=== PATIENT | female | born 1950 | race Caucasian/White ===

== ENCOUNTER → 2017-07-09 | Day surgery (SDC) | payer MEDICARE, OTHER ==
--- NOTE | 2017-07-08 16:43 | Diagnostic Imaging Report ---
PROCEDURE: Frontal and lateral views of the chest. COMPARISON: None. INDICATIONS: PRE OP FINDINGS: Lines/tubes: None. Lungs: The lungs are well inflated and clear. There is no evidence of pneumonia or pulmonary edema. Pleura: There is no pleural effusion or pneumothorax. Heart and mediastinum: The heart and the mediastinum are normal. Bones: No acute bony abnormality. Upper abdomen: Surgical clips overlie the abdomen on lateral view, likely cholecystectomy clips. No free air under the diaphragm. IMPRESSION: No acute cardiopulmonary disease. Dictated by: Vipin Navarro M.D. on 07/08/2017 at 16:51 Electronically approved by: Vipin Navarro M.D. on 07/08/2017 at 16:51
[2017-07-08 16:46] LABS: BASOPHILS % 0.2 % (0.0-1.0); EOSINOPHILS # (AUTO) 0.1 (0.0-0.4); HEMATOCRIT 39.4 % (34.2-44.1); LYMPHOCYTES # (AUTO) 1.9 (1.0-3.2); MEAN CORPUSCULAR HEMOGLOBIN 30.3 pg (28-32); MEAN CORPUSCULAR VOLUME 91.8 fL (81-99); MONOCYTES # (AUTO) 0.8 (0.2-0.8); MONOCYTES % 9.3 % (4.4-11.3); NEUTROPHILS # (AUTO) 5.4 (2.1-6.9); NEUTROPHILS % 66.1 % (38.7-80.0); PLATELET COUNT 282 x10e3/uL (140-360); RED BLOOD COUNT 4.29 x10e6/uL (3.6-5.1); RED CELL DISTRIBUTION WIDTH 12.9 % (11.7-14.4)
[2017-07-08 17:02] LABS: ANION GAP 13.7 mmol/L (8-16); CALCIUM 9.9 mg/dL (8.4-10.2); CREATININE, SERUM 1.2 mg/dL (0.57-1.11); POTASSIUM 4.7 mmol/L (3.5-5.1)
[~2017-07-09] MED LIST: ACETAMINOPHEN 1000 MG/100 ML 100 ML IV ONE; BENTYL10 MG/1 ML PO; BUPIVACAINE 0.25%/EPI 30ML SDV INJ ONE; CITALOPRAM HBR20 MG PO; DEXAMETHASONE SOD PHOS INJ 4 MG/ML VIAL ONE; FENTANYL CITRATE/PF 100MCG/2 ML INJ ONE; LEVAQUIN500 MG PO; LIDOCAINE HCL 2% LOCAL INJ 5 ML SDV VIAL INJ ONE; LISINOPRIL20 MG PO; LOVENOX40 MG/0.4 SC; METRONIDAZOLE500 MG PO; MIDAZOLAM HCL 2 MG/2 ML VIAL ONE; NORCO 7.5-3251 EACH PO; ONDANSETRON HCL INJ 2 MG/ML VIAL ONE; PANTOPRAZOLE SO40 MG PO; PHENYLEPHRINE HCL 1% 10 MG/ML VIAL ONE; PROPOFOL IV EMULSION 10 MG/ML 20 ML VIAL ONE; SEVOFLURANE INHAL SOLN 250 ML PEN BTL ONE; SIMVASTATIN20 MG PO
--- NOTE | 2017-07-09 15:52 | Operative Report ---
DATE OF PROCEDURE: July 09, 2017 PREOPERATIVE DIAGNOSIS: Hematoma of the right breast. POSTOPERATIVE DIAGNOSIS: Hematoma of the right breast. OPERATION PERFORMED: Incision and drainage of hematoma of the right breast. ANESTHESIA: General. COMPLICATIONS: None. ESTIMATED BLOOD LOSS: Minimal. DESCRIPTION OF PROCEDURE: With the patient lying in bed in the supine position, under good general anesthesia, the right breast was prepped with Betadine solution and draped in the usual manner. There was a large bulging hematoma that encompassed the upper, inner and medial quadrants of the right breast extending onto the subareolar area. A small incision was then made at about the 2 o'clock position, and immediately hematoma was entered and a lot of liquefied blood and clots were then obtained, probably at least 300 mL worth. All of this was slowly and carefully aspirated, and all the clots were suctioned out. Once this was done, the cavity was then irrigated with dilute Betadine solution, and all of the fluid was aspirated. Hemostasis was ascertained. A 1/4-inch Calderon drain was then left in the cavity and fixed to the skin with 3-0 silk suture. A dressing was applied. The sponge, lap and needle count was correct. Patient tolerated the procedure well and returned to the recovery room in stable condition. Job#: [id number]
== END | disposition home or self-care (01) ==
LOC: OR 11:06
PROVIDERS: ATTEND Surgery
DX: N64.89 Other specified disorders of breast (principal); E66.01 Morbid (severe) obesity due to excess calories; K21.9 Gastro-esophageal reflux disease without esophagitis; F32.9 Major depressive disorder, single episode, unspecified; Z01.810 Encounter for preprocedural cardiovascular examination; Z01.812 Encounter for preprocedural laboratory examination; Z01.818 Encounter for other preprocedural examination
CPT/HCPCS: 10140; 36415; 71020; 80048; 85025; 93005; J1100; J2001; J2250; J2370; J2405

== ENCOUNTER → 2017-07-13 | Outpatient (CLI) | payer MEDICARE, OTHER ==
[~2017-07-13] MED LIST changes: -ACETAMINOPHEN 1000 MG/100 ML 100 ML IV ONE; -BUPIVACAINE 0.25%/EPI 30ML SDV INJ ONE; -DEXAMETHASONE SOD PHOS INJ 4 MG/ML VIAL ONE; -FENTANYL CITRATE/PF 100MCG/2 ML INJ ONE; +IOPAMIDOL 370 MG/ML 200 ML INFUS..BTL INJ ONE; -LIDOCAINE HCL 2% LOCAL INJ 5 ML SDV VIAL INJ ONE; -MIDAZOLAM HCL 2 MG/2 ML VIAL ONE; -ONDANSETRON HCL INJ 2 MG/ML VIAL ONE; -PHENYLEPHRINE HCL 1% 10 MG/ML VIAL ONE; -PROPOFOL IV EMULSION 10 MG/ML 20 ML VIAL ONE; -SEVOFLURANE INHAL SOLN 250 ML PEN BTL ONE; +SODIUM CHLORIDE 0.9% 250ML 250 ML ONE; +SODIUM CHLORIDE 0.9% 50ML 50 ML ONE
[2017-07-13 12:01] LABS: CREATININE, SERUM 0.98 mg/dL (0.57-1.11)
--- NOTE | 2017-07-13 14:42 | Diagnostic Imaging Report ---
PROCEDURE: CT ABDOMEN \T\ PELVIS W/WO CONTRAST TECHNIQUE: The abdomen and pelvis were scanned utilizing a multidetector helical scanner from the diaphragm to the lesser trochanter before and after the IV administration of 150 cc of Isovue 370 and the oral administration of water. Hematuria protocol was utilized Coronal and sagittal multiplanar reformations were obtained. COMPARISON: None. INDICATIONS: HEMATURIA FINDINGS: LOWER THORAX: Linear subsegmental atelectasis versus scarring in the lingula (series 3, image 22). Mild atherosclerotic calcification of the LAD. Small hiatal hernia. HEPATOBILIARY: Normal hepatic size and contour. No focal lesions. No biliary ductal dilation. Cholecystectomy clips. SPLEEN: No splenomegaly. PANCREAS: No focal masses or ductal dilatation. ADRENALS: No adrenal nodules. KIDNEYS/URETERS: No renal or ureteral calculi. No hydronephrosis, hydroureter, or evidence of obstruction. No solid enhancing lesions. Subcentimeter hypodense lesion in the superior pole of the right kidney (series 6, images 74), which is too small to characterize, but likely represents a small cyst. There is good contrast opacification of bilateral renal collecting systems, renal pelves, and ureters. No filling defects, strictures, or extrinsic compressions. No periureteral stranding. PELVIC ORGANS/BLADDER: Bladder shows mild circumferential wall thickening. No focal lesions. Uterus is absent. No adnexal masses. PERITONEUM / RETROPERITONEUM: No free air or fluid. LYMPH NODES: No lymphadenopathy. VESSELS: Unremarkable. GI TRACT: No bowel dilation or evidence of obstruction. Distal descending and sigmoid diverticulosis, without diverticulitis. BONES AND SOFT TISSUES: No acute bony abnormalities. Degenerative disc changes in the lumbosacral spine, worse at L5-S1, and T12-L1. Grade 1 anterolisthesis of L4 and L5 and L1 and T12. No lytic lesions. No lytic lesions. Slight rightward curvature of the lower thoracic/upper lumbar spine. Soft tissues are grossly unremarkable. IMPRESSION: 1. no renal, ureteral, or bladder calculi. No hydronephrosis or obstruction. No filling defects, strictures, or extrinsic compressions in the opacified portions of the genitourinary tract. 2. Mild circumferential bladder wall thickening. This may reflect cystitis. No focal lesions are identified. 3. Small hiatal hernia. Lloyd Kat M.D. Dictated by: Lloyd Kat M.D. on 07/13/2017 at 14:50 Electronically approved by: Lloyd Kat M.D. on 07/13/2017 at 14:50
== END ==
LOC: CT 07-12 16:13
PROVIDERS: ATTEND Family Medicine
DX: R31.9 Hematuria, unspecified (principal)
CPT/HCPCS: 36415; 74178; 82565; 84520; J7050; Q9967

== ENCOUNTER → 2017-09-09 | Day surgery (SDC) | payer MEDICARE, OTHER ==
[2017-09-07 14:21] LABS: BASOPHILS % 0.3 % (0.0-1.0); EOSINOPHILS # (AUTO) 0.1 (0.0-0.4); EOSINOPHILS % 1.4 % (0.0-6.0); HEMATOCRIT 41.6 % (34.2-44.1); HEMOGLOBIN 13.7 g/dL (12.0-16.0); LYMPHOCYTES # (AUTO) 1.9 (1.0-3.2); MEAN CORPUSCULAR HEMOGLOBIN 30.1 pg (28-32); MEAN CORPUSCULAR HGB CONC 32.9 g/dL (31-35); MEAN CORPUSCULAR VOLUME 91.4 fL (81-99); MONOCYTES # (AUTO) 0.5 (0.2-0.8); MONOCYTES % 8.3 % (4.4-11.3); NEUTROPHILS # (AUTO) 3.4 (2.1-6.9); NEUTROPHILS % 57.8 % (38.7-80.0); PLATELET COUNT 265 x10e3/uL (140-360); RED BLOOD COUNT 4.55 x10e6/uL (3.6-5.1); RED CELL DISTRIBUTION WIDTH 13.4 % (11.7-14.4)
[2017-09-07 14:33] LABS: ANION GAP 14.1 mmol/L (8-16); CREATININE, SERUM 1.06 mg/dL (0.57-1.11); POTASSIUM 5.1 mmol/L (3.5-5.1)
[~2017-09-09] MED LIST changes: +DEXAMETHASONE SOD PHOS INJ 4 MG/ML VIAL ONE; +EPHEDRINE SULFATE INJ 50 MG/10 ML SYR ONE; +FENTANYL CITRATE/PF 100MCG/2 ML INJ ONE; -IOPAMIDOL 370 MG/ML 200 ML INFUS..BTL INJ ONE; +LIDOCAINE HCL 1% LOCAL INJ 20 ML VIAL ONE; +LIDOCAINE HCL 2% LOCAL INJ 5 ML SDV VIAL INJ ONE; +MIDAZOLAM HCL 2 MG/2 ML VIAL ONE; +ONDANSETRON HCL INJ 2 MG/ML VIAL ONE; +PROPOFOL IV EMULSION 10 MG/ML 20 ML VIAL ONE; +SEVOFLURANE INHAL SOLN 250 ML PEN BTL ONE; -SODIUM CHLORIDE 0.9% 250ML 250 ML ONE; -SODIUM CHLORIDE 0.9% 50ML 50 ML ONE
--- OUTSIDE RECORDS SUMMARY | 2017-09-09 08:21 | XMS REPORT ---
Author Author [facility] Address Unknown Phone Unavailable Care Team Providers Care Commercial Loan Manager Name Role Phone MAY ECHEVERRIA Unavailable Unavailable MARIA LUZ SANTILLAN Unavailable Unavailable Problems This patient has no known problems. Allergies, Adverse Reactions, Alerts This patient has no known allergies or adverse reactions. Medications This patient has no known medications. Results Test Description Test Time Test Comments Text Results Atomic Results Result Comments CT ABDOMEN/PELVIS WOW [place] [address] Patient Name: VIOLETTA ANN MR #: [id number] : 1950 Age/Sex: 66/F Req #: [id number] Adm Physician: Ordered by: MAY ECHEVERRIA MD Report #: [id number] Location: CT Room/Bed: Procedure: [id number] CT/CT ABDOMEN/PELVIS WOW Exam Date: 07/13/17 Exam Time: 1235 REPORT STATUS: Signed PROCEDURE: CT ABDOMEN T PELVIS W/WO CONTRAST TECHNIQUE: The abdomen and pelvis were scanned utilizing a multidetector helical scanner from the diaphragm to the lesser trochanter before and after the IV administration of 150 cc of Isovue 370 and the oral administration of water. Hematuria protocol was utilized Coronal and sagittal multiplanar reformations were obtained. COMPARISON: None. INDICATIONS: HEMATURIA FINDINGS: LOWER THORAX : Linear subsegmental atelectasis versus scarring in the lingula (series 3, image 22). Mild atherosclerotic calcification of the LAD. Small hiatal hernia. HEPATOBILIARY: Normal hepatic size and contour. No focal lesions. No biliary ductal dilation. Cholecystectomy clips. SPLEEN: No splenomegaly. PANCREAS: No focal masses or ductal dilatation. ADRENALS: No adrenal nodules. KIDNEYS/URETERS: No renal or ureteral calculi. No hydronephrosis, hydroureter, or evidence of obstruction. No solid enhancing lesions. Subcentimeter hypodense lesion in the superior pole of the right kidney (series 6, images 74), which is too small to characterize, but likely represents a small cyst. There is good contrast opacification of bilateral renal collecting systems, renal pelves, and ureters. No filling defects, strictures, or extrinsic compressions. No periureteral stranding. PELVIC ORGANS/BLADDER: Bladder shows mild circumferential wall thickening. No focal lesions. Uterus is absent. No adnexal masses. PERITONEUM / RETROPERITONEUM: No free air or fluid. LYMPH NODES: No lymphadenopathy. VESSELS: Unremarkable. GI TRACT: No bowel dilation or evidence of obstruction. Distal descending and sigmoid diverticulosis, without diverticulitis. BONES AND SOFT TISSUES: No acute bony abnormalities. Degenerative disc changes in the lumbosacral spine, worse at L5-S1, and T12-L1. Grade 1 anterolisthesis of L4 and L5 and L1 and T12. No lytic lesions. No lytic lesions. Slight rightward curvature of the lower thoracic/upper lumbar spine. Soft tissues are grossly unremarkable. IMPRESSION: 1. no renal, ureteral, or bladder calculi. No hydronephrosis or obstruction. No filling defects, strictures, or extrinsic compressions in the opacified portions of the genitourinary tract. 2. Mild circumferential bladder wall thickening. This may reflect cystitis. No focal lesions are identified. 3. Small hiatal hernia. Sarai Kat M.D. Dictated by: Sarai Kat M.D. on 07/13/2017 at 14:50 Electronically approved by: Sarai Kat M.D. on 07/13/2017 at 14:50 Dictated By: SARAI KAT MD [id number] Transcribed By: TIRSO on 07/13/17 1450 COPY TO: MAY ECHEVERRIA MD CHEST 2 VIEWS [place] [address] Patient Name: VIOLETTA ANN MR #: [id number] : 1950 Age/Sex: 66/F Req #: [id number] Adm Physician: Ordered by: MARIA LUZ SANTILLAN MD Report #: [id number] Location: OR Room/Bed: Procedure: [id number] DX/CHEST 2 VIEWS Exam Date: 07/08/17 Exam Time : 1558 REPORT STATUS: Signed PROCEDURE: Frontal and lateral views of the chest. COMPARISON: None. INDICATIONS: PRE OP FINDINGS: Lines/tubes: None. Lungs: The lungs are well inflated and clear. There is no evidence of pneumonia or pulmonary edema. Pleura: There is no pleural effusion or pneumothorax. Heart and mediastinum: The heart and the mediastinum are normal. Bones: No acute bony abnormality. Upper abdomen: Surgical clips overlie the abdomen on lateral view, likely cholecystectomy clips. No free air under the diaphragm. IMPRESSION : No acute cardiopulmonary disease. Dictated by: Vipin Elder M.D. on 07/08/2017 at 16:51 Electronically approved by: Vipin Elder M.D. on 07/08/2017 at 16:51 Dictated By: VIPIN ELDER MD 50 Transcribed By: TIRSO on 07/08/171650 COPY TO: MARIA LUZ SANTILLAN MD
--- NOTE | 2017-09-09 12:42 | Operative Report ---
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 OPERATION PERFORMED: Right partial mastectomy with preoperative ultrasound-guided needle localization and intraoperative specimen mammography. ANESTHESIA: General. COMPLICATIONS: None. ESTIMATED BLOOD LOSS: Minimal. DESCRIPTION OF PROCEDURE: With the patient lying in bed in the supine position under good general anesthesia after having undergone a needle localization of the area in question, under ultrasound guidance, the right breast was prepped with Betadine solution and draped in the usual manner. An incision was made in the medial aspect of the right breast and a wire was followed to the area in question. The area in question was widely dissected and resected. The specimen was then sent for specimen mammography and this showed that the area in question had been removed and the wire and the marking clip were contained within this specimen. The whole area was then thoroughly irrigated. Perfect hemostasis was ascertained. The breast tissue was then reapproximated with interrupted sutures of 2-0 chromic, and the skin was closed with subcuticular 5-0 Vicryl. Benzoin and Steri-Strips were applied. A dressing was placed. The sponge, lap, and needle count was correct. The patient tolerated the procedure well and returned to the recovery room in stable condition. Job#: [id number] VAS
--- NOTE | 2017-09-10 08:29 | Diagnostic Imaging Report ---
#[id number] - [id number] NEEDLE LOCALIZATION: 09/09/2017 PROCEDURE DESCRIPTION: The patient had a stereotactic biopsy of the right breast, at 3:00 o'clock. Mammograms show a biopsy marker clip at the lesion location. Preoperative localization was requested. Written informed written consent was obtained from the patient, and a formal time out was taken to confirm patient identity and procedure to be perfomed. Using sterile technique, 1% lidocaine local anesthesia, and mammographic guidance, the biopsy clip was preoperatively localized with a hookwire. Final CC and LM mammograms were obtained to document wire location. A sterile bandage was placed over the wire and the patient was transferred from mammography with no immediate complications noted. Correlation is made to exams dated: 06/25/2017 stereotactic biopsy, 06/09/2017 mammogram and 05/04/2017 mammogram - [facility]. IMPRESSION: NEEDLE LOCALIZATION Follow-up with ACR/ACS guidelines. Jackson Quinn Jr., D.O. cw/:09/09/2017 12:40:41 Paper Winder: Regi CHEW)(Blaze), [facility] [id number]
--- NOTE | 2017-09-10 08:29 | Diagnostic Imaging Report ---
#[id number] - [id number] SPECIMEN: 09/09/2017 Correlation is made to exams dated: 09/09/2017 localization - [facility], 06/25/2017 stereotactic biopsy and 06/09/2017 mammogram - [facility]. The specimen contains the biopsy marker in the central portion. IMPRESSION: SPECIMEN Follow-up with ACR/ACS guidelines. Jackson Quinn Jr., D.O. cw/:09/09/2017 12:42:07 Psychiatric Clinician: Regi SWAIN(R)(M), [facility]
== END | disposition home or self-care (01) ==
LOC: OR 08:19
PROVIDERS: ATTEND Surgery
DX: D05.91 Unspecified type of carcinoma in situ of right breast (principal); I10 Essential (primary) hypertension; F32.9 Major depressive disorder, single episode, unspecified; Z01.812 Encounter for preprocedural laboratory examination; Z87.891 Personal history of nicotine dependence
CPT/HCPCS: 19281; 19301; 36415; 76098; 80048; 85025; 88307; C1769; J1100; J2001 ×2; J2250; J2405

== ENCOUNTER 2018-06-22 10:09 | Outpatient (RCR) | payer MEDICARE, OTHER ==
[~2018-06-22 10:09] MED LIST changes: -DEXAMETHASONE SOD PHOS INJ 4 MG/ML VIAL ONE; -EPHEDRINE SULFATE INJ 50 MG/10 ML SYR ONE; -FENTANYL CITRATE/PF 100MCG/2 ML INJ ONE; -LIDOCAINE HCL 1% LOCAL INJ 20 ML VIAL ONE; -LIDOCAINE HCL 2% LOCAL INJ 5 ML SDV VIAL INJ ONE; -MIDAZOLAM HCL 2 MG/2 ML VIAL ONE; -ONDANSETRON HCL INJ 2 MG/ML VIAL ONE; -PROPOFOL IV EMULSION 10 MG/ML 20 ML VIAL ONE; -SEVOFLURANE INHAL SOLN 250 ML PEN BTL ONE
== END 2018-06-24 ==
LOC: PT 10:09
PROVIDERS: ATTEND Specialist
DX: Z96.651 Presence of right artificial knee joint (principal); S80.01XA Contusion of right knee, initial encounter; M25.561 Pain in right knee; M25.661 Stiffness of right knee, not elsewhere classified; M62.81 Muscle weakness (generalized); R26.9 Unspecified abnormalities of gait and mobility
CPT/HCPCS: 97162; G8978; G8979

== ENCOUNTER 2018-07-15 10:00 | Outpatient (RCR) | payer MEDICARE, OTHER | END 2018-07-25 | LOC: PT 10:00 | PROVIDERS: ATTEND Specialist | DX: Z96.651 Presence of right artificial knee joint (principal); S80.01XA Contusion of right knee, initial encounter; M25.561 Pain in right knee; M25.661 Stiffness of right knee, not elsewhere classified; M62.81 Muscle weakness (generalized); R26.9 Unspecified abnormalities of gait and mobility | CPT/HCPCS: 97110 ×9; G8979; G8980 ==

== ENCOUNTER → 2018-09-22 | Outpatient (RCR) | payer MEDICARE, OTHER | LOC: PT 08-29 09:08 | PROVIDERS: ATTEND Specialist | DX: M47.817 Spondylosis without myelopathy or radiculopathy, lumbosacral region (principal); M54.5 Low back pain; R26.2 Difficulty in walking, not elsewhere classified; M62.81 Muscle weakness (generalized) ==

== ENCOUNTER → 2020-07-01 | Day surgery (SDC) | payer MEDICARE, OTHER ==
[2020-06-27 13:03] LABS: BASOPHILS % 0.3 % (0.0-1.0); EOSINOPHILS % 0.7 % (0.0-6.0); HEMATOCRIT 40.8 % (34.2-44.1); HEMOGLOBIN 13.4 g/dL (12.0-16.0); LYMPHOCYTES # (AUTO) 1.4 (1.0-3.2); LYMPHOCYTES % 22.7 % (18.0-39.1); MEAN CORPUSCULAR HEMOGLOBIN 31.4 pg (28-32); MEAN CORPUSCULAR HGB CONC 32.8 g/dL (31-35); MEAN CORPUSCULAR VOLUME 95.6 fL (81-99); MONOCYTES # (AUTO) 0.6 (0.2-0.8); MONOCYTES % 9.2 % (4.4-11.3); NEUTROPHILS # (AUTO) 4.1 (2.1-6.9); NEUTROPHILS % 66.8 % (38.7-80.0); PLATELET COUNT 272 x10e3/uL (140-360); RED BLOOD COUNT 4.27 x10e6/uL (3.6-5.1); RED CELL DISTRIBUTION WIDTH 12.3 % (11.7-14.4)
[~2020-07-01] MED LIST changes: +ARIMIDEX1 MG PO; +FENTANYL CITRATE/PF 100MCG/2 ML INJ ONE; +HYOSCYAMINE 0.125 MG TAB ONE; +KETAMINE HCL INJ 50 MG/ML 10 ML VIAL ONE; +LIDOCAINE HCL 2% LOCAL INJ 5 ML SDV VIAL INJ ONE; +MIDAZOLAM HCL 2 MG/2 ML VIAL ONE; +PROPOFOL IV EMULSION 10 MG/ML 20 ML VIAL ONE
[2020-07-01 12:45] VITALS: BP 129/81
== END | disposition home or self-care (01) ==
LOC: OR 08:28
PROVIDERS: ATTEND Internal Medicine Gastroenterology
DX: K29.60 Other gastritis without bleeding (principal); K63.5 Polyp of colon; K31.7 Polyp of stomach and duodenum; K25.9 Gastric ulcer, unspecified as acute or chronic, without hemorrhage or perforation; K20.90 Esophagitis, unspecified without bleeding; K44.9 Diaphragmatic hernia without obstruction or gangrene; K57.30 Diverticulosis of large intestine without perforation or abscess without bleeding; K21.9 Gastro-esophageal reflux disease without esophagitis; K64.8 Other hemorrhoids; G47.33 Obstructive sleep apnea (adult) (pediatric); I10 Essential (primary) hypertension; E78.00 Pure hypercholesterolemia, unspecified; E66.01 Morbid (severe) obesity due to excess calories; F32.9 Major depressive disorder, single episode, unspecified; Z88.6 Allergy status to analgesic agent; Z88.0 Allergy status to penicillin; Z91.048 Other nonmedicinal substance allergy status; Z01.810 Encounter for preprocedural cardiovascular examination; Z01.812 Encounter for preprocedural laboratory examination; Z20.828 Contact with and (suspected) exposure to other viral communicable diseases; Z68.39 Body mass index [BMI] 39.0-39.9, adult; Z85.3 Personal history of malignant neoplasm of breast
CPT/HCPCS: 36415; 43239; 45385; 85025; 88305; 88312; 93005; J2001; J2250; J2704; J3010; U0002; 45378

== ENCOUNTER → 2023-11-29 | Day surgery (SDC) | payer MEDICARE ==
[2023-11-26 15:18] LABS: BASOPHILS % 0.4 % (0.0-1.0); EOSINOPHILS # (AUTO) 0.1 (0.0-0.4); EOSINOPHILS % 0.6 % (0.0-6.0); HEMATOCRIT 40.3 % (34.2-44.1); HEMOGLOBIN 14.1 g/dL (12.0-16.0); LYMPHOCYTES # (AUTO) 1.8 (1.0-3.2); MEAN CORPUSCULAR HEMOGLOBIN 33.7 pg (28-32); MEAN CORPUSCULAR VOLUME 96.2 fL (81-99); MONOCYTES # (AUTO) 0.7 (0.2-0.8); NEUTROPHILS # (AUTO) 5.7 (2.1-6.9); NEUTROPHILS % 68.8 % (38.7-80.0); PLATELET COUNT 262 x10e3/uL (140-360); RED BLOOD COUNT 4.19 x10e6/uL (3.6-5.1); RED CELL DISTRIBUTION WIDTH 13.5 % (11.7-14.4); WHITE BLOOD COUNT 8.27 x10e3/uL (4.8-10.8)
[~2023-11-29] MED LIST changes: +AMLODIPINE BESYL5 MG PO; +COQ-10100 MG; +DEXMEDETOMIDINE HCL 200 MCG/2 ML VIAL ONE; -FENTANYL CITRATE/PF 100MCG/2 ML INJ ONE; +FISH OIL 1,0001 EAC7 PO; +GLUCOSAMINE1000 MG; +HYDROCHLOROTHIA25 MG PO; -HYOSCYAMINE 0.125 MG TAB ONE; -KETAMINE HCL INJ 50 MG/ML 10 ML VIAL ONE; +LORATADINE10 MG PO; -MIDAZOLAM HCL 2 MG/2 ML VIAL ONE; +MULTIVITAMINS1 EAC6 PO; +VITAMIN B122500 MCG; +VITAMIN D31 ML
[2023-11-29] MEDS: LACTATED RINGER'S 1,000 ML ONE (11:56)
[2023-11-29 15:20] VITALS: BP 120/68; PULSE 78; RESP 18; TEMP 97.3; O2SAT 98
== END | disposition home or self-care (01) ==
LOC: ENDO 12:11
PROVIDERS: ATTEND Internal Medicine Gastroenterology
DX: K22.2 Esophageal obstruction (principal); K31.7 Polyp of stomach and duodenum; K29.70 Gastritis, unspecified, without bleeding; K20.90 Esophagitis, unspecified without bleeding; K44.9 Diaphragmatic hernia without obstruction or gangrene; K21.9 Gastro-esophageal reflux disease without esophagitis; G47.33 Obstructive sleep apnea (adult) (pediatric); I10 Essential (primary) hypertension; M54.2 Cervicalgia; M54.9 Dorsalgia, unspecified; F32.A Depression, unspecified; Z88.6 Allergy status to analgesic agent; Z88.0 Allergy status to penicillin; Z88.8 Allergy status to other drugs, medicaments and biological substances; Z91.048 Other nonmedicinal substance allergy status; Z01.810 Encounter for preprocedural cardiovascular examination; Z01.812 Encounter for preprocedural laboratory examination; Z79.899 Other long term (current) drug therapy; Z85.3 Personal history of malignant neoplasm of breast; Z92.3 Personal history of irradiation
CPT/HCPCS: 36415 ×2; 43239; 43251; 43450; 85025; 93005; C9113; J2001; J2704; J7121

== ENCOUNTER 2024-02-15 06:27 | Observation (INO) | payer MEDICARE ==
[~2024-02-15 06:27] MED LIST changes: +B-125000 MCG/1 PO; +BENICAR5 MG PO; -DEXMEDETOMIDINE HCL 200 MCG/2 ML VIAL ONE; +FUROSEMIDE40 MG PO; -LIDOCAINE HCL 2% LOCAL INJ 5 ML SDV VIAL INJ ONE; -PROPOFOL IV EMULSION 10 MG/ML 20 ML VIAL ONE; +ROPIVACAINE 246.25 MG, EPINEPHRINE HCL 1:1000 1ML 0.5 MG, CLONIDINE HCL 0.08 MG, KETORO... INJ ONE; +VITAMIN B12-FO1 EACH PO; +VITAMIN D3 COM1 EACH PO; -VITAMIN D31 ML; +VITAMIN D31 ML PO
[2024-02-15] MEDS ORDERED: DEXAMETHASONE SOD PHOS 10 MG/1 ML VIAL ONE ×2 (06:57→12:56)
[2024-02-15] MEDS ORDERED: CELECOXIB 200 MG CAP ONE (06:57)
[2024-02-15] MEDS ORDERED: GABAPENTIN 300 MG CAP ONE (06:58)
[2024-02-15] MEDS: LACTATED RINGER'S 1,000 ML ONE (07:08)
[2024-02-15] MEDS: CEFAZOLIN SODIUM 2 GM ONE (07:09)
[2024-02-15] MEDS ORDERED: ROPIVACAINE 246.25 MG, EPINEPHRINE HCL 1:1000 1ML 0.5 MG, CLONIDINE HCL 0.08 MG, KETORO... INJ ONE (07:30)
[2024-02-15] MEDS ORDERED: DIPHENHYDRAMINE HCL INJ 50 MG/ML VIAL ONE (08:08)
[2024-02-15] MEDS ORDERED: TRANEXAMIC ACID 20 ML ONE (09:11)
[2024-02-15] MEDS ORDERED: Vancomycin IV 500 MG ONE (09:11)
[2024-02-15] MEDS ORDERED: SODIUM CHLORIDE 0.9% 500ML 500 ML ONE (09:12)
[2024-02-15] MEDS ORDERED: MIDAZOLAM HCL 2 MG/2 ML VIAL ONE (09:19)
[2024-02-15] MEDS ORDERED: FENTANYL CITRATE/PF 100MCG/2 ML INJ ONE ×2 (09:19→13:20)
[2024-02-15] MEDS ORDERED: DIPHENHYDRAMINE HCL INJ 50 MG/ML VIAL IV PRN (11:15)
[2024-02-15] MEDS ORDERED: DOCUSATE SODIUM 100 MG CAP PO PRN (11:15)
[2024-02-15] MEDS ORDERED: HYDROCODONE/APAP 5MG-325MG TAB PO PRN (11:15)
[2024-02-15] MEDS ORDERED: SODIUM CHLORIDE 0.9% 1000ML 1,000 ML IV SCH (11:15)
[2024-02-15] MEDS ORDERED: HYDROMORPHONE 1MG/1ML INJ ONE (11:16)
[2024-02-15] MEDS: FENTANYL CITRATE/PF 100MCG/2 ML INJ ONE (11:34)
[2024-02-15] MEDS: MEPERIDINE HCL INJ 25 MG/ML VIAL ONE (11:46)
[2024-02-15] MEDS: ONDANSETRON HCL INJ 2MG/ML 2ML 2 MG/ML VIAL IV PRN (11:46)
[2024-02-15] MEDS ORDERED: HYDROCODONE/APAP 7.5MG-325MG 1 EA TAB ONE (12:22)
[2024-02-15] MEDS: HYDROCODONE/APAP 7.5MG-325MG 1 EA TAB PO PRN (12:25)
[2024-02-15] MEDS ORDERED: ROPIVACAINE 0.5% 5 MG/ML 30 ML SDV ONE (12:56)
[2024-02-15] MEDS ORDERED: DEXAMETHASONE SOD PHOS INJ 4 MG/ML SDV ONE (13:08)
[2024-02-15] MEDS ORDERED: KETOROLAC TROMETHAMINE 30 MG/ML VIAL ONE (13:08)
[2024-02-15] MEDS ORDERED: LIDOCAINE HCL 2% LOCAL INJ 5 ML SDV VIAL INJ ONE (13:08)
[2024-02-15] MEDS ORDERED: PROPOFOL IV EMULSION 10 MG/ML 20 ML VIAL ONE (13:08)
[2024-02-15] MEDS ORDERED: ONDANSETRON HCL INJ 2MG/ML 2ML 2 MG/ML VIAL ONE (13:08)
[2024-02-15 14:00] VITALS: BP 122/72; PULSE 80; RESP 16; O2SAT 96
[2024-02-15] MEDS ORDERED: ASPIRIN81 MG PO (14:05)
[2024-02-15] MEDS ORDERED: ASPIRIN 325 MG TAB PO SCH (17:00)
[2024-02-15] MEDS ORDERED: CELECOXIB 100 MG CAP PO SCH (17:00)
[2024-02-16] MEDS ORDERED: ACETAMINOPHEN 1000 MG/100 ML IV PRN (11:15)
== END 2024-02-15 15:00 | disposition home health service (06) ==
LOC: OR 06:27 → PACU V 11:04
PROVIDERS: ADMIT Specialist; ATTEND Specialist
DX: M17.12 Unilateral primary osteoarthritis, left knee (principal); Z96.651 Presence of right artificial knee joint; I10 Essential (primary) hypertension; K21.9 Gastro-esophageal reflux disease without esophagitis; G47.33 Obstructive sleep apnea (adult) (pediatric); G89.29 Other chronic pain; F32.A Depression, unspecified; Z01.812 Encounter for preprocedural laboratory examination; Z86.718 Personal history of other venous thrombosis and embolism; Z87.11 Personal history of peptic ulcer disease; Z85.3 Personal history of malignant neoplasm of breast; Z92.3 Personal history of irradiation; Z79.899 Other long term (current) drug therapy
CPT/HCPCS: 86850; 86900; C1713; C1776; G0378; J0171; J0690; J1100; J1170; J1200; J1885; J2001; J2175; J2250; J2405; J2795; J3370; J7040

== ENCOUNTER 2024-03-24 08:00 | Outpatient (RCR) | payer MEDICARE ==
[~2024-03-24 08:00] MED LIST changes: +ASPIRIN81 MG PO; -ROPIVACAINE 246.25 MG, EPINEPHRINE HCL 1:1000 1ML 0.5 MG, CLONIDINE HCL 0.08 MG, KETORO... INJ ONE
== END 2024-03-25 ==
LOC: PT 08:00
PROVIDERS: ATTEND Physician Assistant
DX: M25.562 Pain in left knee (principal)

== ENCOUNTER 2024-03-31 11:00 | Outpatient (RCR) | payer MEDICARE | END 2024-04-24 | LOC: PT 11:00 | PROVIDERS: ATTEND Physician Assistant | DX: Z47.1 Aftercare following joint replacement surgery (principal); Z96.652 Presence of left artificial knee joint ==